=== PATIENT | male | born 2000 ===

== ENCOUNTER → 2018-04-02 14:13 | Emergency (ER) | payer OTHER ==
[~2018-04-02 14:13] MED LIST: Iohexol 300* (CONTRAST) 10 ML SDV IV ONE
[2018-04-02 14:52] LABS: Urine Appearance Clear; Urine Bilirubin Negative (Negative); Urine Blood Negative (Negative); Urine Color Straw; Urine Glucose Negative (Negative); Urine Ketones Negative (Negative); Urine Nitrite Negative (Negative); Urine Protein Negative (Negative); Urine Specific Gravity 1.005 (1.010-1.030); Urine Urobilinogen Negative (Negative)
[2018-04-02 15:24] LABS: ABS Basophils 0 10^3/ul (0-0.2); ABS Eosinophils 0.1 10^3/ul (0-0.6); ABS Lymphocytes 0.7 10^3/ul (1.0-4.8); ABS Monocytes 0.7 10^3/ul (0-0.8); ABS Neutrophils 3.7 10^3/ul (1.5-7.7); ABS Nucleated RBC 0 10^3/ul; Eosinophil % 1.3 %; Hematocrit 49 % (42-52); Hemoglobin 16.5 g/dl (14.0-18.0); Mean Corpuscular HGB Conc 34 g/dl (31-36); Mean Corpuscular Hemoglobin 30 pg (27-31); Mean Corpuscular Volume 88 fL (80-94); Mean Platelet Volume 7.7 fL (7.4-10.4); Nucleated Red Blood Cells % 0.1; Platelet Count 143 10^3/ul (150-450); Red Blood Count 5.58 10^6/ul (4.00-5.40); Red Cell Distribution Width 13 % (10.5-15); White Blood Count 5.3 10^3/ul (3.5-10.8)
[2018-04-02 15:42] LABS: Albumin 5.1 g/dL (3.2-5.2); BUN/Creatinine Ratio 11.8 (8-20); C Reactive Protein 1.55 mg/L (<8.01); Calcium 10.3 mg/dL (8.6-10.3); EGFR African American 126.6 (>60); EGFR Non-African American 104.7 (>60); Globulin 2.6 g/dL (2-4); Potassium 4.4 mmol/L (3.5-5.0); Total Bilirubin 0.7 mg/dL (0.2-1.0); Total Protein 7.7 g/dL (6.4-8.9)
--- NOTE | 2018-04-02 16:55 | ED ---
GI/ HPI - HPI Summary HPI Summary: 17 year old male presents with abdominal pain since this morning. It is located periumbilically. He states that it radiates around his abdomen. He states that he had lower back pain yesterday. He denies any injury. no loss of bowel or bladder or saddle anaesthesia. no fevers. no nausea, vomiting, diarrhea, or constipation. had a normal bowel movement today. no history of constipation. nothing makes it better or worst. has a normal appetite and pain does not change with food. no urinary symptoms. no chest pain or cough. no testicular pain. never had this pain before. no previous abdominal surgeries. has history of chronic pain. had history of varicocele that has had surgery on. - History of Current Complaint Chief Complaint: EDAbdPain Stated Complaint: ABD/BACK PAIN Pain Intensity: 6 - Allergy/Home Medications Allergies/Adverse Reactions: Allergies Allergy/AdvReac Type Severity Reaction Status Date / Time aspirin AdvReac Bleeding Verified 04/02/18 14:20 Home Medications: Home Medications NK [No Home Medications Reported] 04/02/18 [History Confirmed 04/02/18] PMH/Surg Hx/FS Hx/Imm Hx Endocrine/Hematology History: Denies: Hx Anticoagulant Therapy Respiratory History: Denies: Hx Asthma Infectious Disease History: No Infectious Disease History: Denies: Traveled Outside the [place] in Last 30 Days - Family History Known Family History: Positive: Non-Contributory - Social History Substance Use Type: Reports: None Review of Systems Negative: Fever Negative: Chest Pain Negative: Shortness Of Breath Positive: Abdominal Pain. Negative: Vomiting, Diarrhea, Nausea Negative: flank pain Positive: Myalgia - back pain All Other Systems Reviewed And Are Negative: Yes Physical Exam Triage Information Reviewed: Yes Vital Signs On Initial Exam: Initial Vitals Temp Pulse Resp BP Pulse Ox 99.3 F 97 14 140/89 99 04/02/18 14:16 04/02/18 14:16 04/02/18 14:16 04/02/18 14:16 04/02/18 14:16 Vital Signs Reviewed: Yes Appearance: Positive: Well-Appearing Skin: Positive: Warm, Dry Head/Face: Positive: Normal Head/Face Inspection Eyes: Positive: Normal, EOMI, CL, Conjunctiva Clear ENT: Positive: Normal ENT inspection, Pharynx normal, TMs normal Respiratory/Lung Sounds: Positive: Clear to Auscultation, Breath Sounds Present Cardiovascular: Positive: Normal, RRR Abdomen Description: Positive: Soft, Other: - tenderness greatest periumbilicial , tenderness in RLQ, neg rovsings Bowel Sounds: Positive: Present Musculoskeletal: Positive: Normal Neurological: Positive: Normal Psychiatric: Positive: Normal Diagnostics - Vital Signs Vital Signs Temp Pulse Resp BP Pulse Ox 04/02/18 14:16 99.3 F 97 14 140/89 99 - Laboratory Lab Results: Lab Results 04/02/18 04/02/18 04/02/18 Range/Units 14:30 15:15 15:15 WBC 5.3 (3.5-10.8) 10^3/ul RBC 5.58 H (4.00-5.40) 10^6/ul Hgb 16.5 (14.0-18.0) g/dl Hct 49 (42-52) % MCV 88 (80-94) fL MCH 30 (27-31) pg MCHC 34 (31-36) g/dl RDW 13 (10.5-15) % Plt Count 143 L (150-450) 10^3/ul MPV 7.7 (7.4-10.4) fL Neut % (Auto) 70.7 % Lymph % (Auto) 14.0 % [place] % (Auto) 13.2 % Eos % (Auto) 1.3 % Baso % (Auto) 0.8 % Absolute Neuts (auto) 3.7 (1.5-7.7) 10^3/ul Absolute Lymphs (auto) 0.7 L (1.0-4.8) 10^3/ul Absolute Monos (auto) 0.7 (0-0.8) 10^3/ul Absolute Eos (auto) 0.1 (0-0.6) 10^3/ul Absolute Basos (auto) 0 (0-0.2) 10^3/ul Absolute Nucleated RBC 0 10^3/ul Nucleated RBC % 0.1 Sodium 138 (135-145) mmol/L Potassium 4.4 (3.5-5.0) mmol/L Chloride 103 (101-111) mmol/L Carbon Dioxide 29 (22-32) mmol/L Anion Gap 6 (2-11) mmol/L BUN 11 (6-24) mg/dL Creatinine 0.93 (0.67-1.17) mg/dL Est GFR ( Amer) 126.6 (>60) Est GFR (Non-Af Amer) 104.7 (>60) BUN/Creatinine Ratio 11.8 (8-20) Glucose 102 H (70-100) mg/dL Lactic Acid (0.5-2.0) mmol/L Calcium 10.3 (8.6-10.3) mg/dL Total Bilirubin 0.70 (0.2-1.0) mg/dL AST 16 (13-39) U/L ALT 11 (7-52) U/L Alkaline Phosphatase 49 (34-104) U/L C-Reactive Protein 1.55 (<8.01) mg/L Total Protein 7.7 (6.4-8.9) g/dL Albumin 5.1 (3.2-5.2) g/dL Globulin 2.6 (2-4) g/dL Albumin/Globulin Ratio 2.0 (1-3) Lipase 29 (11.0-82.0) U/L Urine Color Straw Urine Appearance Clear Urine pH 7.0 (5-9) Ur Specific [place] 1.005 L (1.010-1.030) Urine Protein Negative (Negative) Urine Ketones Negative (Negative) Urine Blood Negative (Negative) Urine Nitrate Negative (Negative) Urine Bilirubin Negative (Negative) Urine Urobilinogen Negative (Negative) Ur Leukocyte Esterase Negative (Negative) Urine Glucose Negative (Negative) 04/02/18 Range/Units 15:15 WBC (3.5-10.8) 10^3/ul RBC (4.00-5.40) 10^6/ul Hgb (14.0-18.0) g/dl Hct (42-52) % MCV (80-94) fL MCH (27-31) pg MCHC (31-36) g/dl RDW (10.5-15) % Plt Count (150-450) 10^3/ul MPV (7.4-10.4) fL Neut % (Auto) % Lymph % (Auto) % [place] % (Auto) % Eos % (Auto) % Baso % (Auto) % Absolute Neuts (auto) (1.5-7.7) 10^3/ul Absolute Lymphs (auto) (1.0-4.8) 10^3/ul Absolute Monos (auto) (0-0.8) 10^3/ul Absolute Eos (auto) (0-0.6) 10^3/ul Absolute Basos (auto) (0-0.2) 10^3/ul Absolute Nucleated RBC 10^3/ul Nucleated RBC % Sodium (135-145) mmol/L Potassium (3.5-5.0) mmol/L Chloride (101-111) mmol/L Carbon Dioxide (22-32) mmol/L Anion Gap (2-11) mmol/L BUN (6-24) mg/dL Creatinine (0.67-1.17) mg/dL Est GFR ( Amer) (>60) Est GFR (Non-Af Amer) (>60) BUN/Creatinine Ratio (8-20) Glucose (70-100) mg/dL Lactic Acid 1.1 (0.5-2.0) mmol/L Calcium (8.6-10.3) mg/dL Total Bilirubin (0.2-1.0) mg/dL AST (13-39) U/L ALT (7-52) U/L Alkaline Phosphatase (34-104) U/L C-Reactive Protein (<8.01) mg/L Total Protein (6.4-8.9) g/dL Albumin (3.2-5.2) g/dL Globulin (2-4) g/dL Albumin/Globulin Ratio (1-3) Lipase (11.0-82.0) U/L Urine Color Urine Appearance Urine pH (5-9) Ur Specific [place] (1.010-1.030) Urine Protein (Negative) Urine Ketones (Negative) Urine Blood (Negative) Urine Nitrate (Negative) Urine Bilirubin (Negative) Urine Urobilinogen (Negative) Ur Leukocyte Esterase (Negative) Urine Glucose (Negative) Result Diagrams: 04/02/18 15:15 04/02/18 15:15 Lab Statement: Any lab studies that have been ordered have been reviewed, and results considered in the medical decision making process. - CT abd CT Interpretation Completed By: Radiologist Summary of CT Findings: IMPRESSION: 1. No acute findings. No evidence of appendicitis. 2. Embolization coils are present in the left external iliac region. 3. Mild splenomegaly. Re-Evaluation - Re-Evaluation First Eval Re-Evaluation Time: 18:17 Comment: pain still periumbilical Second Eval Re-Evaluation Time: 20:20 Comment: discussed results GIGU Course/Dx - Course Course Of Treatment: 17 year old male presents with abdominal pain since this morning. It is located periumbilically. He states that it radiates around his abdomen. He states that he had lower back pain yesterday. He denies any injury. no fevers. no nausea, vomiting, diarrhea, or constipation. on exam has tenderness periumbilical and in RLQ. wbc normal. crp normal. urine no infection. discussed with pain distribution discussed CT vs observation and patient wants to do CT. CT shows no acute findings. will discharge to follow up with primary. pateint understand and agrees with plan. - Diagnoses Differential Diagnoses - Male: Appendicitis, Gastroenteritis (Viral), Urinary Tract Infection Provider Diagnoses: Abdominal pain, Back pain Discharge - Sign-Out/Discharge Documenting (check all that apply): Patient Departure Patient Received Moderate/Deep Sedation with Procedure: No - Discharge Plan Condition: Good Disposition: HOME Patient Education Materials: Acute Abdominal Pain (ED) Referrals: Jhonny Caraballo MD [Primary Care Provider] - Additional Instructions: take tyenlol or ibuprofen as needed for pain follow up with primary Return to ED if develop any new or worsening symptoms - Billing Disposition and Condition Condition: GOOD Disposition: Home
[2018-04-02 20:29] VITALS: BP 129/80
== END | disposition home or self-care (01) ==
LOC: ED 14:13
DX: R10.9 Unspecified abdominal pain (principal); M54.9 Dorsalgia, unspecified
CPT/HCPCS: 36415; 74177; 80053; 81003; 83605; 83690; 85025; 86140; 99283; Q9967